=== PATIENT | female | born 1940 | race Caucasian/White ===

== ENCOUNTER 2024-08-09 15:57 | Emergency (ER) | payer OTHER ==
[2024-08-09 16:30] VITALS: BMI 25.0
[2024-08-09 17:58] LABS: CHLORIDE 112 mmol/L (98-107); SODIUM 140 mmol/L (136-145)
[2024-08-09 18:00] LABS: BLOOD UREA NITROGEN 45.4 mg/dL (7-18); CO2 24 mmol/L (21-32)
[2024-08-09 18:01] LABS: ALBUMIN 2.5 g/dl (3.4-5.0); GLUCOSE,RANDOM 115 mg/dL (74-106)
[2024-08-09 18:03] LABS: CREATININE 1.6 mg/dL (0.55-1.3)
[2024-08-09 18:04] LABS: SGOT/AST 79 U/L (15-37); SGPT/ALT 64 U/L (13-61)
[2024-08-09 18:05] LABS: BILIRUBIN,TOTAL 0.5 mg/dL (0.2-1); MEAN CELL VOLUME 106.5 fl (79.4-94.8); MEAN PLT VOLUME 8.9 fl (9.4-12.3); TOT PROT 6.3 g/dl (6.4-8.2)
[2024-08-09 18:06] LABS: ALK PHOS 155 U/L (45-117); HEMATOCRIT 27.9 % (34.1-44.9); HEMOGLOBIN 8.6 g/dL (11.2-15.7); MCHC 30.8 g/dl (32.2-35.5); RDW 22.9 % (12.5-17.0)
[2024-08-09 18:08] LABS: ACTIVATED PTT 33.7 SECONDS (25.2-36.5); ANION GAP 4 mmol/L (4-13); INR 1.36 (0.83-1.09); PLATELET COUNT 6705 x10^3/uL (182-369); POTASSIUM 7.5 mmol/L (3.5-5.1); PROTHROMBIN TIME (PATIENT) 14.8 SEC (9.7-13.0)
[2024-08-09] MEDS: SODIUM CHLORIDE 0.9% 500 ML INFUS.BAG IV ONE (19:06)
[2024-08-09] MEDS ORDERED: SODIUM ZIRCONIUM CYCLOSILICATE (LOKELMA) 10 GM PACKET ONE (19:33)
[2024-08-09 19:35] LABS: MAGNESIUM 2.6 mg/dL (1.8-2.4)
[2024-08-09 19:37] LABS: URIC ACID 12.1 mg/dL (2.6-7.2)
[2024-08-09 19:38] LABS: PHOSPHOROUS 3.8 mg/dL (2.5-4.9)
[2024-08-09] MEDS: SODIUM ZIRCONIUM CYCLOSILICATE (LOKELMA) 5 GM PACKET PO ONE (19:38)
[2024-08-09 19:46] LABS: POTASSIUM 6.5 mmol/L (3.5-5.1)
[2024-08-09 20:03] LABS: LDH 894 U/L (84-246)
[2024-08-09] MEDS ORDERED: ALBUTEROL SO4 0.5 % INH SOLN 2.5 MG/0.5 ML VIAL.NEB. NEB ONE (20:03)
[2024-08-09] MEDS ORDERED: DEXTROSE 50%-WATER 25 GM/50 ML DISP.SYRIN ONE (20:03)
[2024-08-09] MEDS ORDERED: INSULIN REGULAR HUMAN 100 UNITS/ML *VIAL ONE (20:04)
[2024-08-09] MEDS: CALCIUM GLUCONATE 10% - 1,000 MG/10 ML VIAL IVPB ONE (20:09)
[2024-08-09] MEDS: INSULIN REGULAR HUMAN 100 UNITS/ML *VIAL IVPUSH ONE (20:09)
[2024-08-09] MEDS: ALBUTEROL SO4 0.5 % INH SOLN 2.5 MG/0.5 ML VIAL.NEB. NEB ONE (20:09)
[2024-08-09] MEDS: DEXTROSE 50%-WATER - 25 GM/50 ML VIAL IVPUSH ONE (20:09)
[2024-08-10 02:47] VITALS: PULSE 97; RESP 18; TEMP 97.8
[2024-08-10 02:52] VITALS: BP 121/88
== END 2024-08-10 03:44 | disposition short-term general hospital (02) ==
LOC: JER 15:57
PROC: 3E033VG Introduction of Insulin into Peripheral Vein, Percutaneous Approach (ICD-10-PCS; principal; 2024-08-09)
PROC: 3E0F7GC Introduction of Other Therapeutic Substance into Respiratory Tract, Via Natural or Artificial Opening (ICD-10-PCS; 2024-08-09)
DX: C92.10 Chronic myeloid leukemia, BCR/ABL-positive, not having achieved remission (principal)
CPT/HCPCS: 0241U-QW; 36415; 71045-TC-FY; 80053; 83615; 83735; 84100; 84132; 84550; 85025; 85384; 85610; 85730; 86850; 86900; 86901; 93005; 93010; 94640; 96374; 99285-25